=== PATIENT | female | born 1950 | race African-American/Black ===

== ENCOUNTER 2020-03-07 15:24 | Outpatient (CLI) | payer OTHER ==
[~2020-03-07 15:24] MED LIST: Iopamidol-370 76% 500 ML 1 ML ONE
--- NOTE | 2020-03-07 16:34 | CT ---
CT Abdomen Pelvis W Con: 03/07/2020 12:00 AM CLINICAL INFORMATION: Right lower quadrant abdominal pain for 2 months COMPARISON: None. TECHNIQUE: Multiple contiguous axial images were obtained and a CT of the abdomen and pelvis with IV contrast. Oral contrast was administered. Coronal and sagittal reformats were performed. FINDINGS: Lower Chest: within normal limits. Abdomen: Liver: within normal limits. Bile Ducts: Normal caliber. Gallbladder: No calcified gallstones. Normal caliber wall. Pancreas: within normal limits. Spleen: within normal limits. Adrenals: within normal limits. Kidneys: within normal limits. Pelvis: Reproductive Organs: Status post hysterectomy. Ureters: within normal limits. Bladder: within normal limits. Peritoneum: No ascites or free air, no fluid collection. Bowel: Normal caliber. Normal appendix. Mesentery and Retroperitoneum: No enlarged mesenteric or retroperitoneal lymph nodes. Vessels: Atherosclerotic calcifications. Abdominal Wall: within normal limits. Bones: Degenerative changes in the spine. IMPRESSION: No evidence of acute intraabdominal or pelvic abnormality.
== END 2020-03-07 15:25 | disposition home or self-care (01) ==
LOC: BICCT 15:24
PROVIDERS: ATTEND Specialist
DX: R10.9 Unspecified abdominal pain (principal)
CPT/HCPCS: 74177; 82565; Q9967

== ENCOUNTER 2021-07-29 13:12 | Outpatient (CLI) | payer OTHER | END 2021-07-29 13:13 | disposition home or self-care (01) | LOC: ULT 13:12 | PROVIDERS: ATTEND Family Medicine | DX: I73.9 Peripheral vascular disease, unspecified (principal) | CPT/HCPCS: 93923 ==